=== PATIENT | female | born 1995 | race African-American/Black ===

== ENCOUNTER 2019-01-16 09:52 | Emergency (ER) | payer SELFPAY ==
[2019-01-16 10:11] VITALS: BP 121/52; PULSE 79; TEMP 97.9; BMI 26.6
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
== END 2019-01-16 12:35 | disposition home or self-care (01) ==
LOC: JERFT 09:52
DX: S05.12XA Contusion of eyeball and orbital tissues, left eye, initial encounter (principal); H57.12 Ocular pain, left eye; Y04.2XXA Assault by strike against or bumped into by another person, initial encounter; Y93.89 Activity, other specified; Y92.009 Unspecified place in unspecified non-institutional (private) residence as the place of occurrence of the external cause
CPT/HCPCS: 70150-TC-FY; 99281-25